=== PATIENT | male | born 1995 | race Caucasian/White ===

== ENCOUNTER 2016-08-16 07:45 | Emergency (ER) | payer BC ==
[2016-08-16 08:22] VITALS: BP 138/66
--- NOTE | 2016-08-16 08:23 | UC ---
Lore Vasquez SooYoung, [facility] on 08/16/16 at 0753 . Eye Complaint HPI - HPI Summary HPI Summary: NOTE: Vital signs stable. Temp is 97.7. Pulse ox is 98. 4 out of 10 R eyelid discomfort. Weekly EtoH, nonsmoker. Visit hx reviewed: non-contributory. IN ROOM NOTE: A 21 y/o M [place] [facility] [place] and pain on R lower eyelid onset five days ago. He says it started small and then has progressed. Associated sx: pruritus. He's been using warm compresses to mild relief and Ibuprofen. Pt is a [employer] student, plays [employer] football. He notes that he's in a locker room daily, but no one else has anything similar. Denies any recent irritations or trauma to eye. Pt denies previous hospitalizations. NKA. NURSE'S NOTE: pt states he thinks he has a stye underneath his right eye - it has been there for one week. he has swelling, redness, and discomfort to lower eyelid. [ End ] - History of Current Complaint Stated Complaint: EYE COMPLAINT Time Seen by Provider: 08/16/16 07:48 Hx Obtained From: Patient Onset/Duration: Lasting Days, Still Present Timing: Constant Severity Currently: Mild Pain Intensity: 4 Pain Scale Used: 0-10 Numeric Location of Injury: Eye Lid (lower) - R - Allergies/Home Medications Allergies/Adverse Reactions: Allergies Allergy/AdvReac Type Severity Reaction Status Date / Time No Known Allergies Allergy Verified 08/16/16 07:57 Home Medications: Home Medications Ibuprofen TAB* [Advil TAB*] 600 mg PO Q6H PRN 08/16/16 [History Confirmed ] PMH/Surg Hx/FS Hx/Imm Hx Previously Healthy: Yes Endocrine History Of: Denies: Diabetes Cardiovascular History Of: Denies: Hypertension, Pacemaker/ICD - Surgical History Surgical History: None - Family History Known Family History: Positive: Other - pos: kidney CA, uncle Negative: Cardiac Disease, Hypertension, Diabetes - Social History Occupation: Student Lives: Alone Alcohol Use: Weekly Review of Systems Constitutional: Negative Eyes: Other - pos: irritation/pain to R lower eyelid, pruritic All Other Systems Reviewed And Are Negative: Yes Physical Exam Triage Information Reviewed: Yes Appearance: Well-Appearing, No Pain Distress, Well-Nourished Vital Signs: Initial Vital Signs Temp 97.7 F 08/16/16 07:52 Pulse 66 08/16/16 07:52 Resp 16 08/16/16 07:52 BP 138/66 08/16/16 07:52 Pulse Ox 98 08/16/16 07:52 Vital Signs Reviewed: Yes Eye Exam: Other - pos: PERRL; no abnormality to fundi of R eye; obvious edema to inferior medial aspect of R eyelid; internal hordeolum; sclera and cornea are clear. Eyes: Positive: Conjunctiva Clear ENT: Positive: Hearing grossly normal, Pharynx normal, TMs normal. Negative: Muffled/hoarse voice Neck: Positive: Supple, No Lymphadenopathy Respiratory: Positive: Chest non-tender, Lungs clear, Normal breath sounds, No respiratory distress Cardiovascular: Positive: RRR, No Murmur Abdomen Description: Positive: Nontender, Soft Bowel Sounds: Positive: Present Musculoskeletal: Positive: Strength Intact, Other: - QUINONES Neurological: Positive: Alert Psychological: Positive: Age Appropriate Behavior Skin: Negative: rashes Eye Complaint Course/Dx - Course Course Of Treatment: MDM: I discussed with pt a concern about it spreading and becoming periobital cellulitis. At the moment, no evidence of spreading infection or abcess, it is a localized internal hordeolum. - Differential Dx/Diagnosis Differential Diagnosis/HQI/PQRI: Periorbital Cellulitis, Other - localized inflammation secondary to stye Provider Diagnoses: stye R lower lid Discharge - Discharge Plan Condition: Stable Disposition: HOME Prescriptions: Cephalexin CAP* [Keflex CAP*] 500 mg PO TID #9 cap MDD 3 Erythromycin (Ophth) [Ilotycin] 5 mg OPHTHALMIC Q8HR #1 oin Patient Education Materials: Stye (ED) Referrals: [facility] WILSON Llanes [Primary Care Provider] - Additional Instructions: WE DISCUSSED: You have a localized infection because of a stye. Watch for any spreading infection, redness, swelling, pain. Warm moist soaks. Erythromycin eye ointment: use this 3 times a day until 2 days after this resolves. Keflex: one pill, three times a day, for 3 days. The documentation as recorded by the Lore ayala SooYoung accurately reflects the service I personally performed and the decisions made by me, Andrews Rivas MD.
== END 2016-08-16 08:28 | disposition home or self-care (01) ==
LOC: UCEAST 07:45
DX: H00.012 Hordeolum externum right lower eyelid (principal)
CPT/HCPCS: 99212; G0463